=== PATIENT | female | born 1990 | race African-American/Black ===

== ENCOUNTER 2019-02-16 11:58 | Inpatient (IN) | payer OTHER ==
[2019-02-16] MEDS ORDERED: Penicillin G Potassium IV* 5,000,000 UNITS in NS 0.9% 100 ML* 100 ML IVPB ONE (12:27)
[2019-02-16] MEDS ORDERED: Lactated Ringers 1000 ML Bag* 1,000 ML IV ONE (12:27)
--- NOTE | 2019-02-16 12:37 | HP ---
General Information - Reason for Visit Term induction of labor - General Information Maternal Age: 28 Grav: 2 Para: 1 SAB: 0 IEA: 0 Estimated Due Date: 02/20/19 Determined By: LMP Gestational Age in Weeks/Days: 39-10/08 Maternal Blood Type and Rh: O Positive - Results this Serology/RPR Result: Non-Reactive Rubella Result: Immune HBsAg Result: Negative HIV Result: Negative GBS Culture Result: Positive Past Medical History Delivery History: Hx Uncomplicated Vaginal Delivery Delivery History Comment: 10/2013 IOL for pre-eclampsia at 40 weeks. 6lb 5oz male. Delivered at [facility] [place] by Nereyda Smith CNM Pertinent Past Medical History: See Records Past Medical History Comment: Asthma - no current medications Pertinent Past Surgical History: See Records Past Surgical History Comment: 1999 Tonsillectomy & Adenoidectomy Pertinent Family History: See Records Family History Comment: Mother: HTN, DM type 2 MGM: HTN. , [place] MGF: , prostate cancer - Antepartal Records Antepartal Records: Reviewed, Uncomplicated Review of Systems Constitutional: Comfortable CV Complaint: No Respiratory: Shortness of Breath: No Gastrointestinal: No Nausea/Vomiting, Normal Bowel Movement Genitourinary: No Dysuria, No Bleeding, No Leaking Fluid Musculoskeletal: No Complaint, No Epigastric Pain Neurological: No Headache, No Visual Changes Movement: Normal Exam Allergies/Adverse Reactions: Allergies No Known Allergies Allergy (Verified 06/18/12 08:05) BP 132/79 HR 72 T 97.9 RR 18 SpO2 100% on RA - Measurements Height: 5 ft 5.5 in Weight: 169 lb Body Mass Index (BMI): 27.6 Pre- Weight: 130 lb - Exam Breast: Breast Exam Deferred CVA: No CVA Tenderness Extremities: No Edema Heart: Normal Rhythm/Heart Sounds HEENT: No Significant Findings Lungs: Clear Bilaterally Rectal: Rectal Exam Deferred Reflexes: DTR 2+ Thyroid: No Thyromegaly - Abdominal Exam Abdomen Exam: Non-Tender, Fundal Height Consistent with Dates - Ultrasound/Biophysical Profile Ultrasound Status: Not Done Targeted Exam Findings See L&D Outpatient Visit Provider Note for Findings: N/A Estimated Weight: EFW 6.5 lbs Cervical Exam: 4cm - posterior Effacement: 70% Station: -2 Presenting Part: Vertex Membrane Status: Intact Sterile Speculum Exam: Not done Bleeding/Discharge: None EFM Findings - External Monitor Findings Baseline Heart Rate: 120 External Monitor Findings: Accelerations Present, No Pattern of Variable or Late Decelerations, Variability Moderate, Baseline Stable External Monitor Findings Comment: No evidence of metabolic acidemia Contractions: Irregular, Regular, Mild Contraction Frequency: q 5-7 Assessment/Plan - Assessment IUP at 39-3/7 here for elective term induction No evidence of metabolic acidemia GBS positive H/O pre-eclampsia with first - Obstetrical Risk Factors Obstetrical Risk Factors: GBS Positive - Plan Plan: Induction Plan Comment: P: Admit. Counseled for induction with IV pitocin and possible amniotomy. Pt agrees. Pt will want epidural with increased discomfort. Will draw baseline BP labs in presence of mildly elevated BP and h/o pre-eclampsia with previous . Will begin GBS prophylaxis per protocol. Anticipate - Date/Time of Admission Date of Admission: 02/16/19 Time of Admission: 12:32
[2019-02-16] MEDS ORDERED: Lactated Ringers 1000 ML Bag* 1,000 ML IV SCH ×2 (13:00→23:45)
[2019-02-16] MEDS ORDERED: Oxytocin in LR* 20 UNITS/1,000 ML BAG IVPB SCH ×3 (13:00→23:45)
[2019-02-16 13:50] LABS: ABS Lymphocytes 1.6 10^3/ul (1.0-4.8); ABS Monocytes 0.5 10^3/ul (0-0.8); ABS Neutrophils 7.7 10^3/ul (1.5-7.7); Eosinophil % 0.4 %; Hematocrit 37 % (35-47); Hemoglobin 13.1 g/dL (12.0-16.0); Lymphocyte % 16.3 %; Mean Corpuscular HGB Conc 36 g/dL (31-36); Mean Corpuscular Hemoglobin 34 pg (27-31); Mean Corpuscular Volume 94 fL (80-97); Mean Platelet Volume 9.3 fL (7.4-10.4); Platelet Count 195 10^3/uL (150-450); Red Blood Count 3.92 10^6 /uL (3.70-4.87); Red Cell Distribution Width 13 % (10-15); White Blood Count 9.9 10^3/uL (3.5-10.8)
[2019-02-16 13:59] LABS: Urine Appearance Cloudy; Urine Bilirubin Negative (Negative); Urine Blood Negative (Negative); Urine Color Yellow; Urine Glucose Negative (Negative); Urine Ketones Negative (Negative); Urine Nitrite Negative (Negative); Urine Protein Negative (Negative); Urine Specific Gravity 1.018 (1.010-1.030); Urine Urobilinogen Negative (Negative)
[2019-02-16 14:10] LABS: Albumin 3.6 g/dL (3.2-5.2); Albumin/Globulin Ratio 1.3 (1-3); BUN/Creatinine Ratio 15.7 (8-20); Calcium 9.4 mg/dL (8.6-10.3); EGFR African American 119.7 (>60); EGFR Non-African American 98.9 (>60); Globulin 2.8 g/dL (2-4); Potassium 3.7 mmol/L (3.5-5.0); Total Bilirubin 0.3 mg/dL (0.2-1.0); Total Protein 6.4 g/dL (6.4-8.9); Uric Acid 4.9 mg/dL (2.3-6.6)
[2019-02-16 14:13] LABS: Urine Benzodiazepine Screen None Detected (None Detect); Urine Opiates Screen None Detected (None Detect)
[2019-02-16] MEDS: Penicillin G Potassium IV* 2,500,000 UNITS in NS 0.9% 100 ML* 100 ML IVPB SCH ×2 (16:40→21:35)
[2019-02-16] MEDS ORDERED: OBEPIDURAL* 250 ML EPIDURAL ONE (17:20)
--- NOTE | 2019-02-16 17:23 | PN ---
Progress Note - Progress Note Date of Service: 02/16/19 Note: S: Pt breathing through UCs. Ready to discuss epidural placement O: BP 106/74 HR 80bpm RR 16 T 98.7 FHT 130bpm. Moderate variability. +Accels. No decels UCs q 3-5 min, IV pit at 15mu/min VE 4-5cm/80%/vtx -1 A: IUP at 39-3/7 in early active labor No evidence of metabolic acidemia P: Anesthesia paged for consult. Consider amniotomy PRN. Pt agrees.
--- NOTE | 2019-02-16 19:30 | PN ---
Progress Note - Progress Note Date of Service: 02/16/19 Note: S: Pt comfortable s/p CEI placement. O: BP 119/85 HR 85 FHT 135bpm. Min-moderate variability. +Accels. Occ early type decels UCs q 3-5 IV pit at 15mu/min VE 5cm/80%/vtx -1, Amniotomy to clear fluid A: IUP at 39-3/7 in early active labor Cat II FHT, doubt metabolic acidemia P: Continue to monitor maternal/ status closely. Anticipate progression to
--- NOTE | 2019-02-16 21:18 | PN ---
Progress Note - Progress Note Date of Service: 02/16/19 Note: S: Pt coping well. Family at bedside providing a good distraction O: BP 121/74 HR 69 FHT 130bpm. Min-moderate variability. Variable decels with UCs. Rapid recovery to baseline VE 7cm/90%/vtx 0, clear fluid A: IUP at 39-3/7 in active labor Cat II FHT, doubt metabolic acidemia P: Close monitoring of maternal/ status. Anticipate trial of pushing soon
[2019-02-16] MEDS ORDERED: diPHENhydraMINE IV* 50 MG/ML 1 ml VIAL (BENADRYL) ONE (22:17)
[2019-02-16] MEDS ORDERED: diPHENhydraMINE IV* 50 MG/ML 1 ml VIAL (BENADRYL) IV ONE (22:18)
[2019-02-16] MEDS ORDERED: Dibucaine 1% 28.35 GM TUBE PR PRN (23:16)
[2019-02-16] MEDS ORDERED: Glycerin ADULT SUPP PR PRN (23:16)
[2019-02-16] MEDS ORDERED: Witch Hazel PAD* JAR TOPICAL PRN (23:16)
--- NOTE | 2019-02-16 23:24 | PROCNOTE ---
[facility] OB: Delivery Note - Delivery A Date of : 02/16/19 Time of : 22:58 Nerinx Sex: Female - "Monchoariyah" Score 1 Minute: 9 Score 5 Minutes: 9 Gestational Age in Weeks and Days at Delivery: 39 Weeks and 3 Days Delivery Method: Spontaneous Vaginal Labor: Induced Did Patient attempt ?: N/A, No Previous Amniotic Fluid: Clear Estimated Blood Loss: 350 Anesthesia/Analgesia: CEI for Labor - placed by Dr. Williamson Delivered By: Nereyda Smith - Nursery Level of Nursery: Regular/Bedside - Perineum Perineal Injury: None/Intact Perineal Repair: None - Events Delivery Events of Note: Pitocin During Labor, Supplemental O2 to Mother, Full Course of Antibiotics - Additional Delivery Notes Additional Delivery Notes: Pt admitted for term induction of labor. IV pitocin and amniotomy to clear fluid led to onset active labor with expected progression to complete. Length of active phase 5 hours, 34 min. Pushed x 14 min. liveborn female. Slow, controlled delivery of head. OA to ARSEN. Shoulders followed easily. Tight nuchal cord x 2. Nerinx somersaulted through. vigorous with spontaneous cry. HR >110bpm. Delivered to maternal abdomen. Cord clamped x 2 and cut by pt's mother once pulsations ceased. Spontaneous delivery intact placenta. Membranes complete. Fundus firm to massage with IV pitocin infusing. Perineum intact. No repair needed as above. EBL 350mL. At time of note mother and in stable condition. Planning to breast feed.
[2019-02-17] MEDS: Ibuprofen TAB* 600 MG PO PRN ×4 (01:53→20:41)
[2019-02-17] MEDS: Acetaminophen TAB* 325 MG PO PRN ×2 (04:40→12:28)
[2019-02-17] MEDS: Docusate CAP* 100 MG PO SCH ×3 (07:38→20:41)
[2019-02-17 08:10] LABS: ABS Eosinophils 0.1 10^3/ul (0-0.6); ABS Neutrophils 9.7 10^3/ul (1.5-7.7); Eosinophil % 0.6 %; Hematocrit 31 % (35-47); Hemoglobin 10.4 g/dL (12.0-16.0); Lymphocyte % 15.7 %; Mean Corpuscular HGB Conc 34 g/dL (31-36); Mean Corpuscular Hemoglobin 32 pg (27-31); Mean Corpuscular Volume 95 fL (80-97); Mean Platelet Volume 8.9 fL (7.4-10.4); Nucleated Red Blood Cells % 0.1; Platelet Count 163 10^3/uL (150-450); Red Blood Count 3.22 10^6 /uL (3.70-4.87); Red Cell Distribution Width 13 % (10-15); White Blood Count 12.9 10^3/uL (3.5-10.8)
[2019-02-17] MEDS ORDERED: Simethicone TAB* 80 MG TAB.CHEW PO SCH (08:30)
[2019-02-17] MEDS ORDERED: Ferrous Gluconate TAB* 324 MG TAB PO SCH (09:00)
[2019-02-18] MEDS: Ibuprofen TAB* 600 MG PO PRN ×2 (06:36→12:47)
[2019-02-18] MEDS: Docusate CAP* 100 MG PO SCH ×2 (08:16→12:47)
[2019-02-18] MEDS: Acetaminophen TAB* 325 MG PO PRN (08:16)
[2019-02-18 09:15] VITALS: BP 111/57
== END 2019-02-18 19:55 | disposition home or self-care (01) | DRG 560 ==
LOC: MCHOBOUT 11:58 → MCHOB 12:32
PROVIDERS: ADMIT Midwife; ATTEND Midwife
PROC: 10E0XZZ Delivery of Products of Conception, External Approach (ICD-10-PCS; principal; 2019-02-16)
PROC: 10907ZC Drainage of Amniotic Fluid, Therapeutic from Products of Conception, Via Natural or Artificial Opening (ICD-10-PCS; 2019-02-16)
PROC: 3E033VJ Introduction of Other Hormone into Peripheral Vein, Percutaneous Approach (ICD-10-PCS; 2019-02-16)
PROC: 4A1HXCZ Monitoring of Products of Conception, Cardiac Rate, External Approach (ICD-10-PCS; 2019-02-16)
DX: O99.824 Streptococcus B carrier state complicating childbirth (principal); Z37.0 Single live birth; O69.1XX0 Labor and delivery complicated by cord around neck, with compression, not applicable or unspecified; O76 Abnormality in fetal heart rate and rhythm complicating labor and delivery; Z3A.39 39 weeks gestation of pregnancy; Z87.891 Personal history of nicotine dependence
CPT/HCPCS: 36415; 80053; 80307; 81003; 84550; 85025; 86850; 86900; 86901; A9270-GY; J1200; J2540